=== PATIENT | female | born 1965 | race Caucasian/White ===

== ENCOUNTER 2016-10-13 13:53 | Emergency (ER) | payer BC ==
[~2016-10-13] VITALS: Ht 170.2 cm; Wt 66.2 kg
--- NOTE | 2016-10-13 14:18 | PHYS DOC ---
Adult General Chief Complaint Chief Complaint: ABDOMINAL PAIN HPI HPI Patient is a 50 year old female who presents with chest pain and left arm numbness and tingling along with abdominal pain that is present for the past month. Patient states the symptoms have been on and off for the past month and next week has a scheduled ultrasound for her abdomen. Patient states today the pain in her abdomen was intense therefore she came to the emergency room for further evaluation. Patient denies any cardiac history. Patient states the numbness and tingling in left arm along with a chest pain is not related to exertion and it comes and goes. Patient denies any nausea or vomiting. Patient denies any diarrhea. Patient states the pain is generalized. Patient denies any fevers. Pertinent exam findings: Heart regular rate and rhythm without murmurs Generalized tenderness palpation over the abdomen that soft with bowel sounds all 4 quadrants ED course: Patient is seen and evaluated upon arrival CBC, CMP, UA, troponin, urine drug screen, EKG, CT head and pelvis with contrast, chest x-ray was ordered 1403: EKG normal sinus rhythm rate of 63 no STEMI 1613: Patient was reevaluated and results were discussed patient's feeling much better and wants to go home. Pertinent findings: EKG unremarkable Troponin negative CT of abdomen and pelvis normal MDM: After reviewing the chart, CC/HPI/PMH, physical exam, [lab results], [ radiological results], I do not believe the patient is having an acute TN, ( Heart score 2), PE (PERC neg), and low suspicion for acute thoracic aortic dissection. I do not the patient has a intra-abdominal emergency wanted further workup and admission at this time. The patient is stable to be discharged with follow-up with her PCP. Patient is comfortable being discharged. On reexamination the patient feels better. Additional verbal discharge instructions were provided to the patient and that if symptoms get worse or any new symptoms arise that are worrisome to the patient she is to return to the emergency room immediately Review of Systems Review of Systems GEN: Denies fevers, chills, sweats HEENT: Denies blurred vision, sore throat CV: chest pain RESP: Denies shortness of air, cough GI: Denies n/v/d, positive generalized abdominal tenderness NEURO: Denies confusion, dizziness MSK: Denies weakness, joint pain/swelling Current Medications Current Medications Current Medications Medications (Trade) Dose Ordered Sig/Richa Start Time Stop Time Status Last Admin Dose Admin Aspirin (Children'S Aspirin) 324 mg 1X ONCE 10/13/16 14:30 10/13/16 14:31 DC 10/13/16 14:30 324 MG Fentanyl Citrate (Fentanyl 2ml Vial) 50 mcg 1X ONCE 10/13/16 14:30 10/13/16 14:31 DC 10/13/16 14:30 50 MCG Info (Do NOT chart on this entry -- for MONITORING) 1 each PRN DAILY PRN 10/13/16 14:30 10/15/16 14:29 Iohexol (Omnipaque 300 Mg/ml) 75 ml 1X ONCE 10/13/16 14:30 10/13/16 14:31 DC 10/13/16 14:54 75 ML Ondansetron HCl (Zofran) 4 mg 1X ONCE 10/13/16 14:30 10/13/16 14:31 DC 10/13/16 14:30 4 MG Sodium Chloride 1,000 ml @ 1,000 mls/hr 1X ONCE 10/13/16 14:30 10/13/16 15:29 DC 10/13/16 14:30 1,000 MLS/HR Allergies Allergies Allergies Coded Allergies Type Severity Reaction Last Updated Verified No Known Drug Allergies 10/13/16 No Physical Exam Physical Exam GEN.: No apparent distress. Alert and oriented. HEENT: Head is normocephalic, atraumatic NECK: Supple. LUNGS: CTAB. HEART: RRR, S1, S2 present. Peripheral pulses intact ABDOMEN: Soft, generalized tenderness. Positive bowel sounds. EXTREMITIES: Without any cyanosis. NEUROLOGIC: Normal speech, normal tone PSYCHIATRIC: Normal affect, normal mood. SKIN: No ulcerations Current Patient Data Vital Signs Vital Signs Date Time Temp Pulse Resp B/P (MAP) Pulse Ox O2 Delivery O2 Flow Rate FiO2 10/13/16 15:31 55 21 135/64 (87) 99 Room Air 10/13/16 14:09 98.4 98.4 Lab Values Laboratory Tests Test 10/13/16 14:06 10/13/16 15:05 White Blood Count 9.2 x10^3/uL (4.0-11.0) Red Blood Count 5.30 x10^6/uL (3.50-5.40) Hemoglobin 15.2 g/dL (12.0-15.5) Hematocrit 45.2 % (36.0-47.0) Mean Corpuscular Volume 85 fL (79-100) Mean Corpuscular Hemoglobin 29 pg (25-35) Mean Corpuscular Hemoglobin Concent 34 g/dL (31-37) Red Cell Distribution Width 14.0 % (11.5-14.5) Platelet Count 223 x10^3/uL (140-400) Neutrophils (%) (Auto) 66 % (31-73) Lymphocytes (%) (Auto) 26 % (24-48) Monocytes (%) (Auto) 7 % (0-9) Eosinophils (%) (Auto) 1 % (0-3) Basophils (%) (Auto) 1 % (0-3) Neutrophils # (Auto) 6.0 x10^3uL (1.8-7.7) Lymphocytes # (Auto) 2.4 x10^3/uL (1.0-4.8) Monocytes # (Auto) 0.6 x10^3/uL (0.0-1.1) Eosinophils # (Auto) 0.1 x10^3/uL (0.0-0.7) Basophils # (Auto) 0.1 x10^3/uL (0.0-0.2) Sodium Level 139 mmol/L (136-145) Potassium Level 4.1 mmol/L (3.5-5.1) Chloride Level 103 mmol/L (98-107) Carbon Dioxide Level 25 mmol/L (21-32) Anion Gap 11 (6-14) Blood Urea Nitrogen 6 mg/dL (7-20) L Creatinine 0.8 mg/dL (0.6-1.0) Estimated GFR (Cockcroft-Gault) 75.9 BUN/Creatinine Ratio 8 (6-20) Glucose Level 186 mg/dL (70-99) H Calcium Level 9.0 mg/dL (8.5-10.1) Total Bilirubin 0.5 mg/dL (0.2-1.0) Aspartate Amino Transferase (AST) 14 U/L (15-37) L Alanine Aminotransferase (ALT) 17 U/L (14-59) Alkaline Phosphatase 142 U/L (46-116) H Troponin I Quantitative < 0.017 ng/mL (0.000-0.055) Total Protein 7.2 g/dL (6.4-8.2) Albumin 3.8 g/dL (3.4-5.0) Albumin/Globulin Ratio 1.1 (1.0-1.7) Lipase 79 U/L (73-393) Urine Collection Type Unknown Urine Color Yellow Urine Clarity Clear Urine pH 5.5 Urine Specific [place] 1.010 Urine Protein Negative mg/dL (NEG-TRACE) Urine Glucose (UA) Negative mg/dL (NEG) Urine Ketones (Stick) Negative mg/dL (NEG) Urine Blood Negative (NEG) Urine Nitrite Negative (NEG) Urine Bilirubin Negative (NEG) Urine Urobilinogen Dipstick 0.2 mg/dL (0.2 mg/dL) Urine Leukocyte Esterase Negative (NEG) Urine RBC 0 /HPF (0-2) Urine WBC 0 /HPF (0-4) Urine Squamous Epithelial Cells Few /LPF Urine Bacteria 0 /HPF (0-FEW) Urine Opiates Screen Neg (NEG) Urine Methadone Screen Neg (NEG) Urine Barbiturates Neg (NEG) Urine Phencyclidine Screen Neg (NEG) Urine Amphetamine/Methamphetamine Neg (NEG) Urine Benzodiazepines Screen Neg (NEG) Urine Cocaine Screen Neg (NEG) Urine Cannabinoids Screen Neg (NEG) Urine Ethyl Alcohol Neg (NEG) Laboratory Tests 10/13/16 14:06 Laboratory Tests 10/13/16 14:06 EKG EKG [] Radiology/Procedures Radiology/Procedures Chest x-ray unremarkable CT abdomen and pelvis with contrast no acute intra-abdominal process noted [] Course & Med Decision Making Course & Med Decision Making Pertinent Labs and Imaging studies reviewed. (See chart for details) [] Dragon Disclaimer Dragon Disclaimer This electronic medical record was generated, in whole or in part, using a voice recognition dictation system. Departure Departure Impression: Primary Impression: Abdominal pain Additional Impression: Chest pain Disposition: HOME, SELF-CARE Condition: IMPROVED Referrals: NO PCP (PCP) Patient Instructions: Abdominal Pain (Nonspecific) Additional Instructions: Please follow up with her PCP in one to 2 days Problem Qualifiers Primary Impression: Abdominal pain Abdominal location: generalized Qualified Codes: R10.84 - Generalized abdominal pain Additional Impression: Chest pain Chest pain type: unspecified Qualified Codes: R07.9 - Chest pain, unspecified RAE GOMEZ DO October 13, 2016 14:18
[2016-10-13 14:22] LABS: BASO # 0.1 x10^3/uL (0.0-0.2); BASO % 1 % (0-3); EOS % 1 % (0-3); HEMATOCRIT 45.2 % (36.0-47.0); HEMOGLOBIN 15.2 g/dL (12.0-15.5); LYMPH # 2.4 x10^3/uL (1.0-4.8); LYMPH % 26 % (24-48); MEAN CORPUSCULAR HEMOGLOBIN 29 pg (25-35); MEAN CORPUSCULAR HGB CONC 34 g/dL (31-37); MEAN CORPUSCULAR VOLUME 85 fL (79-100); MONO % 7 % (0-9); NEUT % 66 % (31-73); PLATELET COUNT 223 x10^3/uL (140-400); WHITE BLOOD COUNT 9.2 x10^3/uL (4.0-11.0)
[2016-10-13] MEDS ORDERED: IV NORMAL SALINE 1000ML BAG 1,000 ML IV ONE (14:30)
[2016-10-13] MEDS ORDERED: IOHEXOL 300 MG/ML 75 ML VIAL IV ONE (14:30)
[2016-10-13] MEDS ORDERED: CONTRAST GIVEN MC PRN (14:30)
[2016-10-13] MEDS ORDERED: fentaNYL PF VIAL 100 MCG/2 ML VIAL IV ONE (14:30)
[2016-10-13] MEDS ORDERED: ASPIRIN CHEWABLE 81 MG TABLET. PO ONE (14:30)
[2016-10-13] MEDS ORDERED: ONDANSETRON PF 4 MG/2 ML VIAL. IV ONE (14:30)
--- NOTE | 2016-10-13 14:32 | RAD ---
Indication chest pain. Chronic. A single view of the chest was obtained. No prior imaging is available. The heart, pulmonary vessels and mediastinum appear normal. The lungs are clear. There is no pleural fluid or pneumothorax. Bony structures appear unremarkable. IMPRESSION: Normal single view of the chest
[2016-10-13 14:38] LABS: CREATININE 0.8 mg/dL (0.6-1.0); GFR 75.9; POTASSIUM 4.1 mmol/L (3.5-5.1)
[2016-10-13 14:44] LABS: ALBUMIN 3.8 g/dL (3.4-5.0); ALBUMIN/GLOBULIN RATIO 1.1 (1.0-1.7); TOTAL BILIRUBIN 0.5 mg/dL (0.2-1.0); TOTAL PROTEIN 7.2 g/dL (6.4-8.2)
--- NOTE | 2016-10-13 15:16 | RAD ---
CT abdomen and pelvis with IV contrast History: Abdominal pain. Right lower quadrant pain for one year. Comparison: None. Technique: After administration of intravenous contrast, 75 mL Omnipaque 300, helical CT of the abdomen and pelvis was performed from the lung bases through the ischial tuberosities. Axial, sagittal, and coronal reconstructions were obtained. One or more of the following individualized dose reduction techniques were utilized for the study: Automated exposure control Adjustment of mA and/or kV according to patient's size Use of iterative reconstruction technique. Findings: Evaluation of enteric structures may be limited by lack of oral contrast Liver, spleen, pancreas, gallbladder, and bilateral adrenal glands are unremarkable. Bilateral kidneys enhance symmetrically. There is no evidence of bowel obstruction. No free air or free fluid is identified in the abdomen or pelvis. Appendix appears within normal limits. Urinary bladder is unremarkable. Impression: No acute abnormality identified in the abdomen or pelvis.
[2016-10-13 15:22] LABS: BILIRUBIN,URINE NEGATIVE (NEG); GLUCOSE,URINE NEGATIVE (NEG); NITRITE,URINE NEGATIVE (NEG); PH,URINE 5.5; PROTEIN,URINE NEGATIVE (NEG-TRACE); UROBILINOGEN,URINE 0.2 mg/dL (0.2 mg/dL)
[2016-10-13 15:26] LABS: BARBITURATES NEG (NEG); BENZODIAZEPINES NEG (NEG); CANNABINOIDS NEG (NEG); COCAINE NEG (NEG); METHADONE NEG (NEG); OPIATES NEG (NEG); PHENCYCLIDINE NEG (NEG)
[2016-10-13 15:34] LABS: BACTERIA,URINE 0 /HPF (0-FEW); RBC,URINE 0 /HPF (0-2); SQUAMOUS EPITHELIAL CELL,UR FEW /LPF; WBC,URINE 0 /HPF (0-4)
[2016-10-13 16:01] VITALS: BP 153/74
--- NOTE | 2016-10-13 16:03 | EKG ---
[facility] [address] [place] [address] Test Date: 2016-10-13 Test Time: 14:00:39 Pat Name: BARON KENNEDY Department: Room: Gender: F [employer] Layer: : 1965 Requested By: RAE GOMEZ Order Number: [id number] Reading MD: Keith Cuenca Measurements Intervals Bulger Rate: 63 P: 64 NH: 126 QRS: 67 QRSD: 80 T: 66 QT: 388 QTc: 400 Interpretive Statements SINUS RHYTHM Electronically Signed On 10-15-2016 9:16:45 CDT by Keith Cuenca
== END 2016-10-13 16:32 | disposition home or self-care (01) ==
LOC: ER 13:53
DX: R10.84 Generalized abdominal pain (principal); R07.9 Chest pain, unspecified; R20.0 Anesthesia of skin; R20.2 Paresthesia of skin
CPT/HCPCS: 36415; 71010; 74177; 80053; 80305; 80320; 81001; 83690; 84484; 85027; 93005; 96361; 96374; 96375; 99285; J2405; J3010; J7030; Q9967; G0481

== ENCOUNTER → 2018-10-06 | Day surgery (SDC) | payer BC, OTHER ==
[~2018-10-06] MED LIST: GLIM4TAB PO; HYDROmorphone 2 MG/ML VIAL IV PRN; IV RINGERS,LACTATED 1000ML 1,000 ML IV SCH; LIDOCAINE 1% PF 2 ML VIAL. ID PRN; LIDOCAINE 2% PF 5 ML VIAL. ONE; METF10007 PO; MORPHINE SULFATE 2 MG/ML VIAL. IV PRN; ONDANSETRON PF 4 MG/2 ML VIAL. IV PRN; PRAZ2CAP2 PO; PROCHLORPERAZINE 10 MG/2 ML VIAL. IV PRN; PROPOFOL 20 ML IV ONE; fentaNYL PF VIAL 100 MCG/2 ML VIAL IV PRN
[2018-10-06 13:05] VITALS: BP 146/72
== END | disposition home or self-care (01) ==
LOC: SURG 10:23
PROVIDERS: ATTEND Internal Medicine Gastroenterology
DX: K29.50 Unspecified chronic gastritis without bleeding (principal); F17.210 Nicotine dependence, cigarettes, uncomplicated; F32.9 Major depressive disorder, single episode, unspecified; F41.9 Anxiety disorder, unspecified; E78.00 Pure hypercholesterolemia, unspecified; E11.9 Type 2 diabetes mellitus without complications; D64.9 Anemia, unspecified; Z83.3 Family history of diabetes mellitus; Z82.49 Family history of ischemic heart disease and other diseases of the circulatory system; Z79.82 Long term (current) use of aspirin; Z79.899 Other long term (current) drug therapy; Z98.51 Tubal ligation status; Z80.0 Family history of malignant neoplasm of digestive organs; Z80.3 Family history of malignant neoplasm of breast; Z85.828 Personal history of other malignant neoplasm of skin; Z79.84 Long term (current) use of oral hypoglycemic drugs; Z98.890 Other specified postprocedural states
CPT/HCPCS: 43235; J2001; J2704

== ENCOUNTER → 2018-10-24 | Outpatient (CLI) | payer OTHER ==
[2018-10-06 13:05] VITALS: BP 146/72
[~2018-10-24] VITALS: Ht 172.7 cm; Wt 65.3 kg
[~2018-10-24] MED LIST changes: -HYDROmorphone 2 MG/ML VIAL IV PRN; -IV RINGERS,LACTATED 1000ML 1,000 ML IV SCH; -LIDOCAINE 1% PF 2 ML VIAL. ID PRN; -LIDOCAINE 2% PF 5 ML VIAL. ONE; -MORPHINE SULFATE 2 MG/ML VIAL. IV PRN; -ONDANSETRON PF 4 MG/2 ML VIAL. IV PRN; -PROCHLORPERAZINE 10 MG/2 ML VIAL. IV PRN; -PROPOFOL 20 ML IV ONE; +SINCALIDE 1.31 MCG in IV NORMAL SALINE 50ML 30 ML IV ONE; -fentaNYL PF VIAL 100 MCG/2 ML VIAL IV PRN
--- NOTE | 2018-10-24 08:21 | RAD ---
Ultrasound of the right upper quadrant of the abdomen 10/24/2018 CLINICAL HISTORY: Right upper quadrant abdominal pain. TECHNIQUE: A real-time ultrasound examination of the right upper quadrant of the abdomen was performed. Multiple images were obtained. FINDINGS: Comparison is made to the patient's CT scan of the abdomen and pelvis dated 10/13/2016. The gallbladder is well-distended. No gallstones are visualized. The gallbladder wall thickness is within normal limits. No pericholecystic fluid is seen. The common bile duct is mildly dilated measuring 8 mm in diameter. No intrahepatic biliary ductal dilatation is seen. The liver is normal in size and echogenicity. It measures 16.9 cm in length. The visualized portions of the pancreas and right kidney are within normal limits. IMPRESSION: The common bile duct is mildly dilated measuring 8 mm in diameter. No intrahepatic biliary ductal dilatation is seen. Otherwise negative study. Electronically signed by: Eder Berman MD (10/24/2018 8:19 AM) [id number]
--- NOTE | 2018-10-24 09:51 | RAD ---
EXAM: HEPATOBILIARY SCINTIGRAPHY WITH GALLBLADDER EJECTION FRACTION. HISTORY: Abdominal pain/nausea. TECHNIQUE: Scintigraphic images are obtained of the liver and biliary system following intravenous administration of 5.5 mCi of technetium-99m Choletec. After filling of the gallbladder, 1.31 mcg of sincalide were infused and the gallbladder ejection fraction calculated. FINDINGS: There is prompt hepatic clearance of tracer from the blood pool. There is homogeneous distribution throughout the liver. There is normal filling of the gallbladder and normal emptying into the biliary system and small bowel. The gallbladder ejection fraction is 62% (normal >35%). IMPRESSION: 1. Normal gallbladder ejection fraction. Electronically signed by: Romeo Haywood MD (10/24/2018 9:48 AM) [id number]
== END | disposition home or self-care (01) ==
LOC: US 07:08
PROVIDERS: ATTEND Internal Medicine Gastroenterology
DX: R10.11 Right upper quadrant pain (principal); R14.0 Abdominal distension (gaseous); R11.10 Vomiting, unspecified
CPT/HCPCS: 76705; 78227; A9537; J2805

== ENCOUNTER 2019-10-15 18:42 | Emergency (ER) | payer OTHER ==
[~2019-10-15] VITALS: Ht 172.7 cm; Wt 58.0 kg
[~2019-10-15 18:42] MED LIST changes: -SINCALIDE 1.31 MCG in IV NORMAL SALINE 50ML 30 ML IV ONE
[2019-10-15] MEDS ORDERED: IV NORMAL SALINE 1000ML BAG 1,000 ML IV SCH (19:01)
[2019-10-15 19:17] LABS: BILIRUBIN,URINE NEGATIVE (NEG); CLARITY,URINE CLEAR; COLOR,URINE YELLOW; NITRITE,URINE NEGATIVE (NEG); PH,URINE 5.5 (<5.0-8.0); PROTEIN,URINE NEGATIVE (NEG-TRACE); UROBILINOGEN,URINE 0.2 mg/dL (0.2 mg/dL)
[2019-10-15 19:23] LABS: BACTERIA,URINE MODERATE /HPF (0-FEW); RBC,URINE RARE /HPF (0-2); SQUAMOUS EPITHELIAL CELL,UR MOD /LPF; WBC,URINE OCC /HPF (0-4)
[2019-10-15 19:24] LABS: BASO # 0.1 x10^3/uL (0.0-0.2); BASO % 1 % (0-3); EOS % 0 % (0-3); HEMATOCRIT 45.9 % (36.0-47.0); HEMOGLOBIN 15.8 g/dL (12.0-15.5); LYMPH % 16 % (24-48); MEAN CORPUSCULAR HEMOGLOBIN 29 pg (25-35); MEAN CORPUSCULAR HGB CONC 35 g/dL (31-37); MEAN CORPUSCULAR VOLUME 85 fL (79-100); MONO # 0.5 x10^3/uL (0.0-1.1); MONO % 4 % (0-9); NEUT # 9.8 x10^3/uL (1.8-7.7); NEUT % 79 % (31-73); PLATELET COUNT 185 x10^3/uL (140-400); RED BLOOD COUNT 5.41 x10^6/uL (3.50-5.40); RED CELL DISTRIBUTION WIDTH 14.1 % (11.5-14.5); WHITE BLOOD COUNT 12.4 x10^3/uL (4.0-11.0)
[2019-10-15] MEDS: MORPHINE SULFATE 4 MG/ML VIAL. IV/SQ PRN ×3 (19:25→20:24)
--- NOTE | 2019-10-15 19:29 | PHYS DOC ---
Past Medical History Past Medical History: Bipolar, Diabetes-Type II Past Surgical History: Tonsillectomy, Other Additional Past Surgical Histo: L KNEE, D&C Smoking Status: Current Every Day Smoker Alcohol Use: Rarely Drug Use: None General Adult EDM: Chief Complaint: ABDOMINAL PAIN HPI: HPI: Patient is a 53 year old female who presents with complaint of right-sided abdominal pain that started this morning at about 11:00. She states that she has been nauseated but has had no vomiting. She has had 1 normal bowel movement today. She denies any chest pain or shortness of breath. She denies any fever. Patient denies any exposure to patients with COVID. Patient rates pain to be an 8 out of 10. She states the pain is worsened with movement and palpation. [] Review of Systems: Review of Systems: Constitutional: Denies fever or chills. [] Respiratory: Denies cough or shortness of breath. [] Cardiovascular: Denies chest pain or edema. [] GI: Complains of abdominal pain with nausea. Denies vomiting or diarrhea. [] Neurologic: Denies headache, focal weakness or sensory changes. [] A full 10 point review of systems has been reviewed and is otherwise negative. Heart Score: Risk Factors: Risk Factors: DM, Current or recent (<one month) smoker, HTN, HLP, family history of CAD, obesity. Risk Scores: Score 0 - 3: 2.5% MACE over next 6 weeks - Discharge Home Score 4 - 6: 20.3% MACE over next 6 weeks - Admit for Clinical Observation Score 7 - 10: 72.7% MACE over next 6 weeks - Early Invasive Strategies Current Medications: Current Medications Medications (Trade) Dose Ordered Sig/Richa Start Time Stop Time Status Last Admin Dose Admin Morphine Sulfate (Morphine Sulfate) 4 mg PRN Q15MIN PRN 10/15/19 19:15 10/16/19 19:14 Ondansetron HCl (Zofran) 4 mg 1X ONCE 10/15/19 19:45 10/15/19 19:46 Sodium Chloride 1,000 ml @ 1,000 mls/hr Q1H 10/15/19 19:01 10/15/19 20:00 Allergies: Allergies: Allergies Coded Allergies Type Severity Reaction Last Updated Verified No Known Drug Allergies 10/06/18 No Physical Exam: PE: Constitutional: Well developed, well nourished, no acute distress, non-toxic appearance. [] HENT: Normocephalic, atraumatic, bilateral external ears normal, oropharynx moist, no oral exudates, nose normal. [] Eyes: PERRLA, EOMI, conjunctiva normal, no discharge. [] Neck: Normal range of motion, no tenderness, supple, no stridor. [] Cardiovascular: Regular rate and rhythm [] Lungs & Thorax: Bilateral breath sounds clear to auscultation [] Abdomen: Bowel sounds normal, soft, no tenderness. [] Skin: Warm, dry, no erythema, no rash. [] Extremities: No tenderness, no cyanosis, no clubbing, ROM intact, no edema. [] Neurologic: Alert and oriented X 3, no focal deficits noted. [] Current Patient Data: Vital Signs: Vital Signs Date Time Temp Pulse Resp B/P (MAP) Pulse Ox O2 Delivery O2 Flow Rate FiO2 10/15/19 18:52 97.9 87 10 122/72 (89) 97 Room Air 97.9 EKG: EKG: [] Radiology/Procedures: Radiology/Procedures: [] Impression: PROCEDURE: CT ABD PELV W/ IV CONTRST ONLY Examination: CT ABD PELV W/ IV CONTRST ONLY History: Reason: abd pain / Spl. Instructions: OMNI 300 INJ 60 MLS / History: Comparison/Correlation: 09/16/2016 CT abdomen and pelvis with contrast Findings: Axial images of the abdomen and pelvis were obtained following IV contrast. Sagittal and coronal reformatted images provided. The lung bases are clear. Gallbladder fossa is unremarkable. Liver, spleen, pancreas, adrenal glands, and kidneys are normal. Moderate quantity of stool in the colon is present. No bowel obstruction or extraluminal gas. Appendix is normal. Bony structures are unremarkable for patient's age with moderate facet joint degenerative changes at L4-S1 bilaterally. Cc of a calcific involvement of the abdominal aorta and iliac arteries is evident for the patient's age. Significant calcific involvement of the common femoral arteries. Impression: No acute process. Advanced calcific involvement of the abdominal aorta and iliac arteries as well as common femoral arteries. PQRS Compliance Statement: One or more of the following individualized dose reduction techniques were utilized for this examination: 1. Automated exposure control 2. Adjustment of the mA and/or kV according to patient size 3. Use of iterative reconstruction technique Electronically signed by: Eliezer Briceno MD (10/15/2019 8:32 PM) [id number] Course & Med Decision Making: Course & Med Decision Making Pertinent Labs and Imaging studies reviewed. (See chart for details) [] Yudy Disclaimer: Dragon Disclaimer: This electronic medical record was generated, in whole or in part, using a voice recognition dictation system. Departure Departure Impression: Primary Impression: Abdominal pain Qualified Codes: R10.9 - Unspecified abdominal pain Additional Impression: Hyperglycemia due to diabetes mellitus Disposition: HOME, SELF-CARE Condition: STABLE Referrals: NO PCP (PCP) Patient Instructions: Abdominal Pain, Hyperglycemia Scripts Ondansetron (ONDANSETRON ODT) 4 Mg Tab.rapdis 1 TAB PO PRN Q6-8HRS PRN for NAUSEA, #15 TAB Prov: DAMION RIVERS Jr. DO 10/15/19 Hydrocodone/Apap 5-325 (NORCO 5-325 TABLET) 1 Each Tablet 1-2 EACH PO PRN Q6HRS PRN for PAIN, #15 as needed for pain Prov: DAMION RIVERS Jr. DO 10/15/19 DAMION RIVERS Jr. DO October 15, 2019 19:29
[2019-10-15 19:34] LABS: CALCIUM 9.1 mg/dL (8.5-10.1); CREATININE 1.1 mg/dL (0.6-1.0)
[2019-10-15 19:39] LABS: ALBUMIN 3.6 g/dL (3.4-5.0); ALBUMIN/GLOBULIN RATIO 1.1 (1.0-1.7); TOTAL BILIRUBIN 0.6 mg/dL (0.2-1.0); TOTAL PROTEIN 6.9 g/dL (6.4-8.2)
[2019-10-15] MEDS ORDERED: ONDANSETRON PF 4 MG/2 ML VIAL. IVP ONE (19:45)
[2019-10-15] MEDS ORDERED: CONTRAST GIVEN. MC PRN (20:15)
[2019-10-15 20:17] VITALS: BP 165/83
[2019-10-15] MEDS ORDERED: IOHEXOL 300 MG/ML 100ML VIAL. IV ONE (20:30)
--- NOTE | 2019-10-15 20:35 | RAD ---
Examination: CT ABD PELV W/ IV CONTRST ONLY History: Reason: abd pain / Spl. Instructions: OMNI 300 INJ 60 MLS / History: Comparison/Correlation: 09/16/2016 CT abdomen and pelvis with contrast Findings: Axial images of the abdomen and pelvis were obtained following IV contrast. Sagittal and coronal reformatted images provided. The lung bases are clear. Gallbladder fossa is unremarkable. Liver, spleen, pancreas, adrenal glands, and kidneys are normal. Moderate quantity of stool in the colon is present. No bowel obstruction or extraluminal gas. Appendix is normal. Bony structures are unremarkable for patient's age with moderate facet joint degenerative changes at L4-S1 bilaterally. Cc of a calcific involvement of the abdominal aorta and iliac arteries is evident for the patient's age. Significant calcific involvement of the common femoral arteries. Impression: No acute process. Advanced calcific involvement of the abdominal aorta and iliac arteries as well as common femoral arteries. PQRS Compliance Statement: One or more of the following individualized dose reduction techniques were utilized for this examination: 1. Automated exposure control 2. Adjustment of the mA and/or kV according to patient size 3. Use of iterative reconstruction technique Electronically signed by: Eliezer Briceno MD (10/15/2019 8:32 PM) [id number]
[2019-10-15] MEDS ORDERED: ONDA4TAB12 PO (21:23)
[2019-10-15] MEDS ORDERED: HYDR-3164 PO (21:23)
== END 2019-10-15 21:40 | disposition home or self-care (01) ==
LOC: ER 18:42
DX: R10.31 Right lower quadrant pain (principal); R10.32 Left lower quadrant pain; E11.65 Type 2 diabetes mellitus with hyperglycemia; F31.9 Bipolar disorder, unspecified; F17.200 Nicotine dependence, unspecified, uncomplicated
CPT/HCPCS: 36415; 74177; 80053; 81001; 83690; 85025; 87086; 96361; 96374; 96375; 96376; 99285; J2270; J2405; J7030; Q9967